=== PATIENT | female | born 1980 | race Hispanic/Latino ===

== ENCOUNTER 2025-02-21 14:17 | Emergency (ER) | payer BC ==
[~2025-02-21] VITALS: Ht 154.9 cm; Wt 119.3 kg
--- NOTE | 2025-02-21 14:23 | ERN ---
ED Note History of Present Illness Stated Complaint: BACK PAIN-NO INJURY X3 DAYS Chief Complaint: Back Pain-No Injury Time Seen by MD: 14:18 Dictation: PATIENT IS A 44-YEAR-OLD FEMALE COMING IN TODAY WITH BILATERAL FLANK PAIN THAT RADIATES AROUND TO HER EPIGASTRIC AREA BILATERALLY FOR THREE DAYS. SHE HAS NO FEVER NO CHILLS NO NAUSEA VOMITING. SHE DENIES CHEST PAIN, NO FEVER NO CHILLS. Allergies: Coded Allergies: No Known Drug Allergies (Unverified Allergy, Unknown, 02/21/25) Past Medical History Past Medical History: Hypertension Surgical History: History: Not Applicable RN Note Reviewed/Agreed w/PFSH: Yes Review of System Dictation CONSTITUTIONAL: NEGATIVE EXCEPT FOR HPI HEAD/FACE: NEGATIVE EXCEPT FOR HPI EENT: NEGATIVE EXCEPT FOR HPI RESPIRATORY: NEGATIVE EXCEPT FOR HPI BILATERAL FLANK PAIN RADIATING TO RIGHT LOWER AND UPPER LOWER QUADRANT GENITOURINARY: NEGATIVE EXCEPT FOR HPI MUSCULOSKELETAL: NEGATIVE EXCEPT FOR HPI INTEGUMENTARY: NEGATIVE EXCEPT FOR HPI NEUROLOGICAL/PSYCH: NEGATIVE EXCEPT FOR HPI HEMATOLOGIC/LYMPHATIC: NEGATIVE EXCEPT FOR HPI ALL SYSTEMS NEGATIVE, EXCEPT NOTED ABOVE. 13 POINT REVIEW OF SYSTEMS ASSESSED AND ALL NEGATIVE EXCEPT FOR ABOVE. Initial Vital Sign VS Vital Signs Date Time Temp Pulse Resp B/P (MAP) Pulse Ox O2 Delivery O2 Flow Rate FiO2 02/21/25 14:18 98.1 71 16 124/66 100 02/21/25 15:10 Room Air* 0 21 Physical Exam Dictation VITAL SIGNS REVIEWED GENERAL APPEARANCE: ALERT, ORIENTED X 3, N MILD [place] DISTRESS, WELL DEVELOPED, NOURISHED. MORBID OBESITY HEAD AND FACE: NON-TRAUMATIC. EYES: PERRL, PINK CONJUNCTIVAS, EYELID NO TRAUMA, ANTERIOR CHAMBER WITH ARCUS SENILIS. EARS: PINNAS INTACT AND NO SIGNS OF TRAUMA OR ERYTHEMA EAR CANALS CLEAR AND NO DISCHARGE TM NO ERYTHEMA NOSE: NO DISCHARGE, NO BLEEDING. OROPHARYNX: MOUTH NORMAL, TONGUE PINK, PHARYNX CLEAR,NO ERYTHEMA, TONSILS NO EXUDATES, NO ABSCESSES NOTED, MUCOUS MEMBRANE MOIST NECK: SUPPLE, NON-TENDER, NO THYROMEGALY, NO MASSES, NO JVD, NO BRUITS BREAST:DEFERRED CHEST:NO TENDERNESS, NO CREPITUS, NO PARADOXICAL MOVEMENT, NO RETRACTIONS LUNGS:CLEAR, WELL-VENTILATED, SYMMETRIC, NO RALES, NO WHEEZING, NO RHONCHI, NO STRIDOR, GOOD BREATH SOUNDS BILATERALLY HEART: REGULAR RATE, REGULAR RHYTHM, NO MURMUR, NO GALLOPS VASCULAR: NO PERIPHERAL EDEMA, ABDOMEN: SOFT, POSITIVE BOWEL SOUNDS, NONDISTENDED, NO GUARDING, NONTENDER, NO REBOUND, NO MASSES NO HEPATOMEGALY, NO SPLENOMEGALY, NO HUGHES'S SIGN, NO HERNIAS. NEGATIVE CVAT RECTAL: DEFERRED GENITAL: DEFERRED NEUROLOGICAL: NORMAL SPEECH, MOTOR FUNCTION INTACT, SENSORY FUNCTION INTACT MUSCULOSKELETAL: NECK NONTENDER, FULL RANGE OF MOTION, BACK NONTENDER, FULL RANGE OF MOTION, EXTREMITIES: NONTENDER, FULL RANGE OF MOTION SKIN: COLOR PINK, DRY, NO TURGOR, NO RASH, NO LACERATIONS, NO ABRASIONS, NO CONTUSIONS. LYMPHATIC: DEFERRED Results (Laboratory/Radiology) Laboratory/Radiology Laboratory Tests Test 02/21/25 14:35 White Blood Count 8.4 K/uL (4.8-10.8) Red Blood Count 4.29 MIL/uL (4.00-5.50) Hemoglobin 10.5 g/dL (12.0-16.0) L Hematocrit 33.7 % (36-48) L Mean Corpuscular Volume 78.6 fL (79-99) L Mean Corpuscular Hemoglobin 24.5 pg (27.0-33.0) L Mean Corpuscular Hemoglobin Concent 31.2 g/dL (32.0-36.0) L Red Cell Distribution Width 15.0 % (11.0-15.5) Platelet Count 297 K/uL (130-400) Mean Platelet Volume 9.3 fL (7.5-10.5) Immature Granulocyte % (Auto) 0.4 % (0-1) Neutrophils (%) (Auto) 47.2 % (40.0-77.0) Lymphocytes (%) (Auto) 41.2 % (21.0-51.0) Monocytes (%) (Auto) 8.5 % (3.0-13.0) Eosinophils (%) (Auto) 2.2 % (0.0-8.0) Basophils (%) (Auto) 0.5 % (0.0-5.0) Neutrophils # (Auto) 4.0 K/uL (1.8-7.7) Lymphocytes # (Auto) 3.5 K/uL (1.0-4.8) Monocytes # (Auto) 0.7 K/uL (0.1-1.0) Eosinophils # (Auto) 0.18 K/uL (0.00-0.70) Basophils # (Auto) 0.04 K/uL (0.00-0.20) Absolute Immature Granulocyte (auto 0.03 K/uL (0-1) Nucleated Red Blood Cells 0.0 % (0.0-0.19) Red Blood Cell Morphology See comments Urine Color LIGHT-YELLOW (YELLOW) Urine Appearance CLOUDY (CLEAR) H Urine pH 6.5 (5.0-8.0) Urine Specific [place] 1.015 (1.001-1.031) Urine Protein NEGATIVE mg/dL (NEGATIVE) Urine Glucose (UA) NEGATIVE mg/dL (NEGATIVE) Urine Ketones NEGATIVE mg/dL (NEGATIVE) Urine Occult Blood MODERATE (NEGATIVE) H Urine Nitrate NEGATIVE (NEGATIVE) Urine Bilirubin NEGATIVE mg/dL (NEGATIVE) Urine Urobilinogen 0.2 mg/dL (0.2-1.0) Urine Leukocyte Esterase 500 Thor/uL (NEGATIVE) H Urine RBC 11-25 /HPF (0-1) H Urine WBC 26-50 /HPF (0-1) H Urine Squamous Epithelial Cells FEW /HPF (0-2) Urine Other Crystals (Auto) 1 /HPF (None Seen) Urine Bacteria RARE /HPF (None Seen) Urine HCG, Qualitative NEGATIVE (NEGATIVE) Sodium Level 139 mmol/L (136-145) Potassium Level 3.0 mmol/L (3.5-5.1) *L Chloride Level 102 mmol/L (101-111) Carbon Dioxide Level 30 mmol/L (21-32) Blood Urea Nitrogen 6 mg/dL (7-18) L Creatinine 0.7 mg/dL (0.5-1.0) Glomerular Filtration Rate Calc 109 mL/min (>90) Random Glucose 95 mg/dL (70-105) Total Calcium 8.6 mg/dL (8.5-10.1) Lipase 35 U/L (16-77) 1755/RENAL ULTRASOUND DEMONSTRATES BLADDER JETS WITH NO SIGNS OF HYDRO NEPHROSIS OR STONE. Labs Reviewed?: Yes ED Course ED Course Orders Procedure Category Date Status Time Cbc With Differential LAB 02/21/25 Complete 14:21 ,Urine Test LAB 02/21/25 Complete 14:21 Urinalysis Profile LAB 02/21/25 Complete 14:21 Lipase LAB 02/21/25 Complete 14:21 Basic Metabolic Panel LAB 02/21/25 Complete 14:21 Culture Urine NEREYDA 02/21/25 In Process 14:59 Potassium Bicarb/Cit PHA 02/21/25 Complete Ac 25meq (K-Lyte Ta 16:00 Us Renal Sonogram US 02/21/25 Taken 16:36 Current Medications Medications (Trade) Dose Ordered Sig/Burt Route PRN Reason Start Time Stop Time Status Last Admin Dose Admin Potassium Bicarbonate (K-Lyte Tablet Eff 25 Meq Tablet.eff) 50 meq ONCE ONCE PO 02/21/25 16:00 02/21/25 16:01 DC 02/21/25 15:52 Vital Signs Date Time Temp Pulse Resp B/P (MAP) Pulse Ox O2 Delivery O2 Flow Rate FiO2 02/21/25 15:10 98.1 71 16 124/66 100 Room Air* 0 21 02/21/25 14:18 98.1 71 16 124/66 100 1755/PATIENT DISCHARGED HOME WITH PAIN MARKEDLY REDUCED. SHE IS AWARE THERE WAS NO STONE SHE DOES HAVE AN ACUTE CYSTITIS WITH HEMATURIA SENT HOME WITH A AUGMENTIN AND IBUPROFEN SEE HER PRIMARY CARE DOCTOR Medical Decision Making MDM MDM: DIFFERENTIAL DIAGNOSIS: RENAL COLIC/RENAL STONE/PYELONEPHRITIS/ACUTE CYSTITIS/BACK PAIN/ELECTROLYTE IMBALANCE/DEHYDRATION RATIONALE: TESTS CONSIDERED AND ORDERED SECONDARY TO SHARED DECISION MAKING INCLUDE: LABS/RADIOLOGY PREVIOUS OUTSIDE RECORDS REVIEWED: OLD ER VISITS. RISK OF COMPLICATION AND/OR MORBIDITY OR MORTALITY OF PATIENT MANAGEMENT: NONE MEDICATIONS-PER MEDICATION RECONCILIATION NEED FOR HOSPITALIZATION: PATIENT DOES NOT MEET CRITERIA FOR HOSPITALIZATION. NONE NEED FOR EMERGENCY MAJOR/MINOR SURGERY: NO THERE ARE NO SOCIAL CONCERNS WITH THIS PATIENT. PRESCRIPTION DRUG MANAGEMENT AUGMENTIN/IBUPROFEN PRESCRIPTIONS WILL INCLUDE SYMPTOMATIC CARE PATIENT'S PRIOR EXTERNAL MEDICAL RECORDS FROM OTHER ER VISITS WERE REVIEWED BY ME INDICATED. PRIOR TESTING AND RESULTS FROM PREVIOUS VISITS WERE REVIEWED. PRIOR TESTS WERE TAKEN INTO ACCOUNT WITH MEDICAL DECISION MAKING AND RESOURCE UTILIZATION, INDEPENDENT HISTORIAN/HISTORIANS WERE USED TO OBTAIN COMPLETE ME DICAL HISTORY. I INDEPENDENTLY INTERPRETED THE TEST THAT WERE PERFORMED, RESULTS WERE REVIEWED BY ME AND CONSIDERED FINDINGS ON RADIOLOGY IF ORDERED. MEDICAL MANAGEMENT AND EXAMINATION INTERPRETATION DISCUSSIONS WERE HAD BY ME WITH OTHER QUALIFIED HEALTHCARE PROFESSIONALS INDICATED FOR THE PATIENT'S CARE. DX & DISP Disposition: Discharge Departure Impression: Primary Impression: Acute cystitis with hematuria Additional Impression: Back pain Condition: Stable Scripts Phenazopyridine HCl (Pyridium) 200 Mg Tab 200 MG PO TIDPC for 3 Days, #9 TAB TAKE WITH FOOD TO PREVENT STOMACH UPSET. Prov: ADA VALENTIN Esther HARMAN 02/21/25 Ibuprofen (Ibuprofen) 800 Mg Tablet 800 MG PO Q6H PRN for PAIN, #30 TAB Prov: ADA VALENTIN Esther HARMAN 02/21/25 Amoxicillin/Potassium Clav (Amox Tr-K Clv 875-125 mg Tab) 875 Mg-125 Mg Tablet 1 EACH PO BID for 7 Days, #14 TAB 0 Refills Prov: ADA VALENTIN Esther HARMAN 02/21/25 Additional Instructions: FOLLOW-UP WITH PRIMARY CARE PROVIDER IN 1 TO 2 DAYS. TAKE MEDICATIONS DIRECTED HERE IN THE EMERGENCY ROOM. OKAY TO CONTINUE HOME MEDICATIONS UNLESS OTHERWISE DISCUSSED DURING YOUR VISIT IN THE EMERGENCY ROOM TODAY. RETURN TO YOUR NEAREST EMERGENCY ROOM IF SYMPTOMS WORSEN OR IF THERE IS NO IMPROVEMENT. CALL 911 IF YOU NEED IMMEDIATE ASSISTANCE. TAKE TYLENOL OR MOTRIN OVER-THE- COUNTER NEEDED AND IF NO CONTRAINDICATIONS ARE PRESENT. INCREASE ORAL HYDRATION. A WOUND CULTURE OR URINE CULTURE WAS ORDERED HERE IN THE EMERGENCY ROOM DEPARTMENT PLEASE FOLLOW-UP WITH PRIMARY CARE PROVIDER AND ADVISE THEM TO GET REPEAT PORTS FROM OUR FACILITY. IF YOU HAD ANY FLOR WRAP/SPLINTS THAT WERE APPLIED HERE, PLEASE DO NOT REMOVE THEM UNTIL YOU SEE YOUR PRIMARY CARE OR SPECIALTY. TAKE ANTIBIOTICS DIRECTED UNTIL GONE. TAKE PYRIDIUM DIRECTED UNTIL GONE, REMEMBER IT WILL TURN YOUR URINE ORANGE RED. TAKE IBUPROFEN NEEDED EVERY 6-8 HOURS WITH FOOD FOR PAIN INCREASE YOUR WATER INTAKE. SEE YOUR PRIMARY CARE DOCTOR FOR FOLLOW UP IN 1-2 DAYS. Time of Disposition: 17:56 I have reviewed the case, and I agree with, Diagnosis and Plan ADA VALENTIN Esther HARMAN Feb 21, 2025 14:23
[2025-02-21 14:46] LABS: IMMATURE GRANULOCYTE ABSOLUTE 0.03 K/uL (0-1); NUCLEATED RED BLOOD CELLS 0.0 % (0.0-0.19); PLATELET COUNT (AUTO) 297 K/uL (130-400); RED BLOOD CELL COUNT(AUTO) 4.29 MIL/uL (4.00-5.50); RED CELL DISTRIBUTION WIDTH 15.0 % (11.0-15.5); WHITE BLOOD COUNT (AUTO) 8.4 K/uL (4.8-10.8)
[2025-02-21 14:47] LABS: APPEARANCE,URINE CLOUDY (CLEAR); GLUCOSE, URINE (UA) NEGATIVE (NEGATIVE); LEUKOCYTE ESTERASE ,URINE 500 Leu/uL (NEGATIVE); NITRATE,URINE NEGATIVE (NEGATIVE); OCCULT BLOOD,URINE MODERATE (NEGATIVE)
[2025-02-21 14:54] LABS: CREATININE 0.7 mg/dL (0.5-1.0); GLOMERULAR FILTR. RATE CALC 109.0 mL/min (>90); GLUCOSE,RANDOM 95.0 mg/dL (70-105); SODIUM SERUM 139.0 mmol/L (136-145); UREA NITROGEN, BLOOD 6.0 mg/dL (7-18)
[2025-02-21 14:57] LABS: HCG,QUALITATIVE URINE NEGATIVE (NEGATIVE)
[2025-02-21 14:59] LABS: ADD UA MICROSCOPIC YES
[2025-02-21 15:05] LABS: SQUAMOUS EPITHELIAL CELL,UR FEW /HPF (0-2); UNCLASSIFIED CRYSTAL 1 /HPF (None Seen)
[2025-02-21 18:02] VITALS: BP 122/68; PULSE 74; RESP 16; TEMP 98.1; O2SAT 100
--- NOTE | 2025-02-21 18:10 | HMCIMG ---
EXAM: US Retroperitoneum, Renal. CLINICAL HISTORY: BILATERAL FLANK PAIN. RULE OUT STONE OR HYDRO NEPHROSIS TECHNIQUE: Real-time ultrasound of the retroperitoneum with image documentation. COMPARISON: None provided. FINDINGS: RIGHT KIDNEY: Right kidney measures 9 cm in length without focal normality. LEFT KIDNEY: Left kidney measures 11 cm in length without focal normality BLADDER: Urinary bladder is unremarkable MISCELLANEOUS: No other significant abnormality evident. IMPRESSION: 1. No acute renal or bladder abnormalities. /Ambreen
== END 2025-02-21 18:08 | disposition home or self-care (01) ==
LOC: EDH 14:17
DX: N30.01 Acute cystitis with hematuria (principal); I10 Essential (primary) hypertension; Z98.890 Other specified postprocedural states
CPT/HCPCS: 36415; 76770; 80048; 81001; 81025; 83690; 85025; 87086; 99284